=== PATIENT | male | born 1975 | race African-American/Black ===

== ENCOUNTER 2016-04-22 09:42 | Emergency (ER) | payer SELFPAY ==
--- NOTE | 2016-04-24 09:16 | ER ---
ADMIT: 04/22/2016 RM/LOC: ER [facility] MR#: [id number] [address] [id number] [place] [address] Emergency Room Report SEX: M AGE: 40 : 1975 DATE: 04/22/2016 ADDENDUM: CHIEF COMPLAINT: Back pain. 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 He said he was driving on Wednesday, he started to develop right flank pain. It has been intermittent and worse at night time. He is unable to sleep with it. He was worked up for renal colic here in the emergency room. CT was actually negative. His urine only showed 4 red blood cells. Kidney function was slightly bumped with a creatinine of 1.5. I told him to continue to push fluids. Go home, stretch, activity as tolerated. I am sending him home with [place] for times when he is not driving to help him sleep at night time, have him follow up with PCP in 1- 2 weeks to recheck. CLINICAL IMPRESSION: Acute low back strain. REDD Pisano / Joni Amezquita MD / modl JOB #: [id number] CC: Joni Amezquita MD, Attending Physician Tal Wang MD, Family Physician
== END 2016-04-22 12:00 | disposition home or self-care (01) ==
LOC: ER 09:42
DX: S39.012A Strain of muscle, fascia and tendon of lower back, initial encounter (principal); F17.210 Nicotine dependence, cigarettes, uncomplicated; Y93.89 Activity, other specified; X58.XXXA Exposure to other specified factors, initial encounter